=== PATIENT | female | born 1990 | race Caucasian/White ===

== ENCOUNTER → 2023-10-11 11:33 | Outpatient (BNVA) | payer OTHER, SELFPAY | PROVIDERS: PCP Internal Medicine; Visit Provider Physician Assistant Surgical ==

== ENCOUNTER → 2023-10-18 08:08 | Outpatient (BNVA) | payer OTHER, SELFPAY | PROVIDERS: PCP Internal Medicine; Visit Provider Surgery ==

== ENCOUNTER 2023-10-27 08:27 | Outpatient (AMB) | payer OTHER, SELFPAY ==
--- NOTE | 2023-10-27 12:03 | A.OFFVIS_ITS ---
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 Allergies Sulfa (Sulfonamide Antibiotics) Allergy (Mild, Verified 10/27/23 12:03) RASH, unknown hydrocodone [Hydrocodone] Adverse Reaction (Mild, Verified 10/27/23 12:03) NAUSEA & VOMITING tramadol [From Ultram] Adverse Reaction (Mild, Verified 10/27/23 12:03) NAUSEA & VOMITING Medication List - Last Reconciled 10/27/23 by Hi Shea MD dextroamphetamine-amphetamine 10 mg 1 tab PO DAILY dextroamphetamine-amphetamine 30 mg ER (Adderall XR) 1 cap PO QAM HPI 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 HPI Details Start time: 11.50am, End time: 12.39pm ?I spent 44 minutes speaking with the patient on the phone plus an additional 5 minutes reviewing and updating records for a total of 49 minutes HPI Comments History of Present Illness Details Previous weight loss efforts: carb-free diet Wakes up: 5am, Sleeps: 10pm Breakfast: x3/wk 8.30am (omelette) Lunch: 2pm when she did not have breakfast (salad, or soup) Dinner: 6pm (protein, vegetables, rice or pasta) Snacks: none Exercise: walking outside Fluids: Coffee: 2-3 6oz (cream), tea: green tea x1/wk, soda: none, juice: none, ETOH: 2-3/month (2 glasses of wine) PFSH Medical History (Updated 10/27/23 @ 12:06 by Hi Shea MD) ADHD Morbid obesity Surgical History (Updated 10/11/23 @ 12:12 by Con Curiel, FRANCISCA) Hx of tubal ligation Hx of carpal tunnel repair Family History (Updated 10/11/23 @ 12:13 by Con Curiel, RN) Mother No problems noted. Social History (Updated 10/11/23 @ 12:14 by Con Curiel, RN) Alcohol intake: current Alcohol intake frequency: holidays/special occasions only Alcohol type: wine Patient Tobacco Use Status: Former Tobacco user Tobacco use type: Cigarette Years Smoked: 2021 quit Assessment & Plan Assessment & Plan (1) Morbid obesity: Code(s): E66.01 - Morbid (severe) obesity due to excess calories Plan: 1.? Plan for lap sleeve gastrectomy. If diaphragmatic or ventral hernias are present at time of surgery, these will be repaired laparoscopically as well. Risks and complications were discussed in detail including possible conversion to an open procedure, anastomotic leak, bleeding requiring transfusion, small bowel obstruction, , DVT and pulmonary embolism, cardiac, or pulmonary complications, as snf complications such as anastomotic ulcer, insufficient weight loss and vitamin deficiencies. I emphasized the importance o f close follow-up, adherence to instructions and good communication. 2. Nutritional counseling. Start with 2 CELEBRATE REBUILD protein (buy at [facility] [employer]) shakes (ONE scoop EACH in 8oz low fat unsweetened almond milk each) at 6am-8am and 9am-11am, 2 protein bars (CELEBRATE protein bars, buy at [facility]) at 12pm-2pm and 3pm-5pm, dinner at 6pm (10 forks of protein and 10 forks of salad/vegetables) AND one more protein bar after dinner at 8pm-10pm. So you do 2 protein shakes, 3 protein bars and one meal per day. Meal to include lean meat (beef, fish, pork, turkey, chicken), or danish yogurt, or egg whites, or beans with a salad with olive oil and fruits (berries, pears, apples, kiwi). Avoid salt, breads, potatoes, rice, pasta, desserts. 3. Each shake would be drunk slowly, like coffee in a period of 2 hours. 4. Cut each bar in 4 pieces and eat each piece in 30min ?to make each bar last 2 hours. 5. I emphasized the importance of measuring accurately the food portion and measure it when serving the food in plate 6. The meal portions include 10 full-size forks of meat and 10 full-size forks of salad. You always eat the meat portion but you can replace up to 5 forks for salad/vegetables with rice, potatoes or pasta, or a fruit ?if you like. The less you do it the better weight loss will be. 7. One full-size fork is what it can be scooped on the fork without falling aside and not what can be bit with the fork. Use regular forks like those you find in a typical restaurant. 8.? Please send me weight measurements as soon as possible and then once a week . Always include your diet and exercise plan. 9. Start walking outside daily, tracking calories with a goal of 300 calories per day, daily. Goal is to burn 2000 calories per week on exercise, which means either 300 calories daily, or 400 calories 5 days per week, or 500 calories 4 days per week, or 650 calories 3 days per week. 10. The best choice would be to purchase a stationary bike, elliptical or treadmill at home that can track calories. Let me know if you do so I can give you an exercise plan. 11.?It is important of avoiding and for at least 18 months postoperatively and has been discussed at the infosession. 12. Goal is to lose at least 1.5-2lbs per week 13. Goal to lose 10% of your weight before surgery, which is about 27lbs. Ultimate weight goal: 243lbs before surgery 14. Please follow the diet plan exactly without any change. If you don't like something about the plan or you feel hungry you need to communicate with me so I can help you revise the plan. You should not change the plan yourself. Orders: Orders H Pylori Breath Test Today E66.01 - Morbid (severe) obesity due to excess calories IRON PROFILE Today E66.01 - Morbid (severe) obesity due to excess calories Vitamin B12 and Folate Today E66.01 - Morbid (severe) obesity due to excess calories Vitamin B1 Today E66.01 - Morbid (severe) obesity due to excess calories Vitamin A Today E66.01 - Morbid (severe) obesity due to excess calories TSH reflex Free T4 Today E66.01 - Morbid (severe) obesity due to excess calories Ferritin Today E66.01 - Morbid (severe) obesity due to excess calories XR chest 2V Today E66.01 - Morbid (severe) obesity due to excess calories FL upper GI w air Today E66.01 - Morbid (severe) obesity due to excess calories Insulin Today E66.01 - Morbid (severe) obesity due to excess calories Hemoglobin A1c Today E66.01 - Morbid (severe) obesity due to excess calories Complete Blood Count Auto Diff Today E66.01 - Morbid (severe) obesity due to excess calories Lipid Panel Today E66.01 - Morbid (severe) obesity due to excess calories Comprehensive Met. Panel Today E66.01 - Morbid (severe) obesity due to excess calories Zinc Today E66.01 - Morbid (severe) obesity due to excess calories C Reactive Protein Today E66.01 - Morbid (severe) obesity due to excess calories Vitamin D 25-OH Total Today E66.01 - Morbid (severe) obesity due to excess calories US abdomen comp w elastography Today E66.01 - Morbid (severe) obesity due to excess calories ECG 12 lead EKG Today E66.01 - Morbid (severe) obesity due to excess calories Referrals Behavioral Health Referral E66.01 - Morbid (severe) obesity due to excess calories Nutrition/Dietitian Referral E66.01 - Morbid (severe) obesity due to excess calories Telehealth Telehealth Location of provider rendering services: practice address Location of patient: address on file Patient Identification confirmed using: Name, : Yes Telehealth method: voice only Patient verbally consented to treatment: Yes Patient verbally consented to billing insurance company: Yes Patient informed of any privacy concerns related to visit: Yes Minutes spent on Phone/Video with Pt.: 49 Coding Level of Care Code Tele [facility] Pt Level 4 (09338) Diagnoses Morbid obesity E66.01 Time Spent (min) 49
[2023-10-27 12:13] VITALS: BMI 52.7
== END 2023-10-27 12:39 | disposition home or self-care (01) ==
PROVIDERS: PCP Internal Medicine; Visit Provider Surgery
DX: E66.01 Morbid (severe) obesity due to excess calories (principal)
CPT/HCPCS: 99204

== ENCOUNTER → 2023-10-27 08:27 | Outpatient (BNVA) | payer OTHER, SELFPAY | PROVIDERS: PCP Internal Medicine; Visit Provider Surgery ==

== ENCOUNTER 2023-11-14 11:12 | Outpatient (AMB) | payer OTHER, SELFPAY ==
--- NOTE | 2023-11-14 11:01 | A.OFFVIS_ITS ---
Intake Intake Visit Reasons: VIDEO Initial Nutrition SWL Allergies Sulfa (Sulfonamide Antibiotics) Allergy (Mild, Verified 10/27/23 12:03) RASH, unknown hydrocodone [Hydrocodone] Adverse Reaction (Mild, Verified 10/27/23 12:03) NAUSEA & VOMITING tramadol [From Ultram] Adverse Reaction (Mild, Verified 10/27/23 12:03) NAUSEA & VOMITING HPI Nutrition Presentation Reason for consult elevated BMI Diet Assmnt Details Hasn't started surgeons nutrition plan yet. has four children 17, 14, 4, 5 years old- lives with just them Exercise: elliptical 3x per week 30 minutes AM and 30 mins PM . also in PT Classes: none , was never enrolled. link sent [employer] as well. Previous weight loss methods attempted low carb for years; [facility] program in the past but felt it wasnt a good fit Dietary counseling reduction Who buys your food self Who prepares/cooks your food self Meal frequency regular: breakfast (egg sandwich - omlette bites ) and dinner (protein, starch such as rice and pasta - states issues w portion control) and never: lunch Lifestyle Eating out 4 or more times/week Food frequency Restaurants/fast foods: daily (breakfast daily), Water: daily, Soda: never, Juice: never and Coffee: daily Diagnosis Nutrition problem #1 overweight/obesity As related to (etiology) #1 excess energy intake and physical inactivity As evidenced by (sign/symptom) #1 high BMI Monitoring/Goals Nutrition problem monitoring total energy intake, level of knowledge/skill, total PRO intake and weight Outcome progress verbalized understanding Learning/Education Readiness to learn fair Stages of change preparation Most Recent Diabetes Results: No Data to Display [facility] Medical History (Updated 10/27/23 @ 12:06 by Hi Shea MD) ADHD Morbid obesity Surgical History (Updated 10/11/23 @ 12:12 by Con Curiel, RN) Hx of tubal ligation Hx of carpal tunnel repair Family History (Updated 10/11/23 @ 12:13 by Con Curiel, RN) Mother No problems noted. Social History (Updated 10/11/23 @ 12:14 by Con Curiel, RN) Alcohol intake: current Alcohol intake frequency: holidays/special occasions only Alcohol type: wine Patient Tobacco Use Status: Former Tobacco user Tobacco use type: Cigarette Years Smoked: 2022 quit Assessment & Plan Assessment & Plan (1) Morbid obesity: Code(s): E66.01 - Morbid (severe) obesity due to excess calories Plan pt appears committed to surgery. will be seen again after completion of classes to review - nutrition follow up 12/20 2pm Telehealth Telehealth Location of provider rendering services: practice address Location of patient: address on file Patient Identification confirmed using: Name, : Yes Telehealth method: voice only Patient verbally consented to treatment: Yes Patient verbally consented to billing insurance company: Yes Patient informed of any privacy concerns related to visit: Yes Minutes spent on Phone/Video with Pt.: 20 Coding Level of Care Code Nutr Indiv Intake (14051) Diagnoses Morbid obesity E66.01 Time Spent (min) 20
== END 2023-11-14 11:28 | disposition home or self-care (01) ==
LOC: HO.HBS 11:12
PROVIDERS: PCP Internal Medicine; Visit Provider Dietitian, Registered
DX: E66.01 Morbid (severe) obesity due to excess calories (principal)

== ENCOUNTER → 2023-11-14 11:12 | Outpatient (BNVA) | payer OTHER, SELFPAY | PROVIDERS: PCP Internal Medicine; Visit Provider Dietitian, Registered | DX: E66.01 Morbid (severe) obesity due to excess calories (principal); Z71.3 Dietary counseling and surveillance | CPT/HCPCS: 97802 ==